=== PATIENT | female | born 1975 | race Caucasian/White ===

== ENCOUNTER 2019-04-26 11:03 | Day surgery (SDC) | payer OTHER ==
[~2019-04-26 11:03] MED LIST: Buffered Lidocaine 1% SYRIN* 1 ML/SYRINGE INTRADERM ONE; Lactated Ringers 1000 ML Bag* 1,000 ML IV SCH
[2019-04-26] MEDS ORDERED: ceFAZolin 2 GM PREMIX in ORs 2 GM/50 ML BAG ONE (12:00)
[2019-04-26] MEDS ORDERED: Lidocaine 1% INJ* 10 MG/ML 30 ML SDV ONE (13:02)
[2019-04-26] MEDS ORDERED: fentaNYL* 50 MCG/ML 2 ML VIAL (100 MCG VIAL) ONE (13:24)
[2019-04-26] MEDS ORDERED: Midazolam* 1 MG/ML 5 ML VIAL (5 MG) ONE (13:24)
[2019-04-26] MEDS ORDERED: Propofol* 10 MG/ML 20 ML BTL ONE (13:32)
[2019-04-26] MEDS ORDERED: Midazolam* 1 MG/ML 2 ML VIAL (2 MG) ONE (14:00)
[2019-04-26] MEDS ORDERED: Naloxone* 0.4 MG/ML 1 ML VIAL IV PRN (14:15)
[2019-04-26 15:13] VITALS: BP 134/86
--- NOTE | 2019-04-27 | OP ---
DATE OF OPERATION: 04/26/19 - [facility] DATE OF : 75 SURGEON: Ba Marcelo DPM ANESTHESIA: MAC local. PRE-OP DIAGNOSIS: Right fourth plantarflexed metatarsal. POST-OP DIAGNOSIS: Right fourth plantarflexed metatarsal. OPERATIVE PROCEDURE: Removal of the right fourth metatarsal head. ESTIMATED BLOOD LOSS: Less than 10 cc. DRAINS: None. SPECIMENS: Bone metatarsal head and the right fourth metatarsal. DESCRIPTION OF PROCEDURE: The patient was taken to the operating room and was placed in the supine position. Time-out was called and OR team agreed. The right foot was then blocked with 10 cc of 1% lidocaine plain in a Esqueda block fashion at the base of the fourth metatarsal. The foot was then prepped and draped in a sterile manner. The left foot was then exsanguinated with an Esmarch bandage and the cuff was then inflated to 250 mmHg. Attention was then paid to the right fourth metatarsal where I made a linear incision over the first metatarsophalangeal joint. This was followed by sharp and blunt dissection starting from the epidermis, dermis, subcutaneous tissue and down to deep fascia. I incised the deep fascia down to the capsule. The capsule was incised and the periosteum was dissected with the bone revealing the fourth metatarsophalangeal joint. I went ahead and freed the collateral ligaments around the fourth metatarsal head, was able to release it from the joint. I went ahead and used the sagittal saw to remove the head at the level of the neck. Once I removed the head of the fourth metatarsal, the procedure was deemed completed. The site was irrigated and closed in a layered anatomical fashion. I used 3-0 Vicryl for the deep sutures and I used a 4-0 nylon for the skin closure. I went ahead and deflated the cuff. The site was injected with 8 cc of 0.25% Marcaine plain with 2 cc of 8 mg of dexamethasone phosphate. The patient was taken to Recovery. The foot was placed in a dry sterile dressing. She was taken to Recovery in stable condition and was discharged in stable condition as well. Also, note that immediately nearly after the cuff was deflated as well as my examination in the Recovery, all the toes on the right foot had instant capillary refill of 1 sec x5. No signs of ischemia noted. [id number]/[facility] #: [id number] SARAH
== END 2019-04-26 15:30 | disposition home or self-care (01) ==
LOC: OR 11:03
PROVIDERS: ATTEND Podiatrist
DX: M21.6X1 Other acquired deformities of right foot (principal); F17.210 Nicotine dependence, cigarettes, uncomplicated; Z68.36 Body mass index [BMI] 36.0-36.9, adult
CPT/HCPCS: 88304; 88311; J0690; J2250; J2704; J3010